=== PATIENT | male | born 1990 | race Caucasian/White ===

== ENCOUNTER → 2018-01-20 | Outpatient (CLI) | payer BC | LOC: LABPAT 08:44 | PROVIDERS: ATTEND Surgery | DX: Z01.818 Encounter for other preprocedural examination (principal) | CPT/HCPCS: 93005 ==

== ENCOUNTER 2018-01-21 06:49 | Day surgery (SDC) | payer BC ==
[2018-01-18 15:59] VITALS: BMI 40.3
[~2018-01-21 06:49] MED LIST: DEXAMETHASONE SOD PHOSPHATE 10 MG/ML 1 ML VIAL IV ONE; HEPARIN SODIUM,PORCINE 5,000 UNIT/ML 1 ML VIAL SQ ONE; HYDROmorphone 0.5 MG/0.5 ML SYRINGE IVP PRN; LACTATED RINGERS 1,000 ML IV SCH; MIDAZOLAM 2 MG/2 ML VIAL IV PRN; ONDANSETRON 4 MG/2 ML VIAL IVP ONE; SCOPOLAMINE 1.5MG/72HR PATCH TRANSDERM ONE; metroNIDAZOLE-NS PMX 500 MG in SALINE 1 100ML.BAG IVPB ONE
[2018-01-21] MEDS ORDERED: LIDOCAINE 1% 20 ML VIAL (10MG/ML) FOR IV START INTRADERMA ONE (07:12)
[2018-01-21] MEDS ORDERED: MIDAZOLAM 2 MG/2 ML VIAL ONE (08:12)
[2018-01-21] MEDS ORDERED: PROPOFOL 10 MG/ML 20 ML VIAL IV ONE (08:12)
[2018-01-21] MEDS ORDERED: LIDOCAINE 1% INJ 10MG/ML (20 ML MDV) ONE (08:12)
[2018-01-21] MEDS ORDERED: fentaNYL (PF) 50 MCG/ML 2 ML AMP ONE (08:12)
[2018-01-21] MEDS ORDERED: SUCCINYLCHOLINE CHLORIDE VIAL 200 MG/10 ML VIAL IV ONE (08:12)
--- NOTE | 2018-01-21 08:12 | P.GSHP ---
History of Present Illness H&P Date: 01/21/18 Chief Complaint: Neck lipoma, pilonidal cyst The 27-year-old male referred from Dr. Abad Barrios. Patient presents today for excision of pilonidal cyst and excision of posterior neck lipoma. Past Medical History Past Medical History: Hypertension History of Any Multi-Drug Resistant Organisms: None Reported Past Surgical History: Tonsillectomy Additional Past Surgical History / Comment(s): josh removed from neck, sinus surgery Past Anesthesia/Blood Transfusion Reactions: No Reported Reaction Smoking Status: Never smoker - Past Family History Mother Family Medical History: No Reported History Medications and Allergies Home Medications Medication Instructions Recorded Confirmed Type No Known Home Medications 01/21/16 01/18/18 History Allergies Allergy/AdvReac Type Severity Reaction Status Date / Time Milk Containing Products Allergy Unknown Verified 01/18/18 15:52 [Dairy] wheat Allergy Unknown Verified 01/18/18 15:52 Surgical - Exam Vital Signs Temp Pulse Resp BP Pulse Ox 98.0 F 94 16 135/78 99 01/21/18 07:03 01/21/18 07:03 01/21/18 07:03 01/21/18 07:03 01/21/18 07:03 - General well developed, no distress - Eyes PERRL - ENT normal pinna - Neck I centimeters posterior neck lipoma no masses - Respiratory normal expansion - Cardiovascular Rhythm: regular - Abdomen Abdomen: soft, non tender - Integumentary Pilonidal cyst Assessment and Plan Assessment: Posterior neck lipoma, pilonidal cyst. We'll perform excision.
[2018-01-21] MEDS ORDERED: BUPIVACAIN-EPI 0.25%-1:200,000 30 ML VIAL SQ ONE (08:44)
[2018-01-21 09:26] VITALS: TEMP 97.3
[2018-01-21 09:54] VITALS: RESP 16
[2018-01-21] MEDS ORDERED: HYDROcodone/APAP 7.5-325MG 1 EACH TAB PO ONE (10:27)
[2018-01-21 10:29] VITALS: BP 121/81; PULSE 98
--- NOTE | 2018-01-21 12:26 | P.OP ---
Date of Procedure: 01/21/18 Preoperative Diagnosis: Posterior neck lipoma Pilonidal cyst Postoperative Diagnosis: Posterior neck sebaceous cyst Pilonidal cyst Procedure(s) Performed: Excision of posterior neck sebaceous cyst Excision of pilonidal cyst Anesthesia: ERIC Surgeon: Florencio Stoddard Estimated Blood Loss (ml): 5 Pathology: other (Pilonidal cyst, sebaceous cyst) Condition: stable Disposition: PACU Description of Procedure: The patient's placed on the operating table in the supine position. He received general anesthesia. He was then placed the prone position. His neck and gluteal area were prepped and draped usual sterile fashion. Patient had a 5 cm mass in the posterior midline neck. The skin was incised and using blunt and sharp dissection mass was excised. The mass was a sebaceous cyst. The Bovie hemostasis. Skin was closed interrupted 3-0 Monocryl suture. Dermabond was applied. Next the pilonidal cyst was excised. Using a 15 blade elliptical skin incision was made around the cyst and then using electrocautery the subcutaneous fat were divided. And then the pilonidal cyst excised. The wound was packed with wet-to-dry Kerlix. Patient top she will was sent to recovery in stable condition.
== END 2018-01-21 11:19 | disposition home or self-care (01) ==
LOC: OR 06:49
PROVIDERS: ATTEND Surgery
DX: L05.91 Pilonidal cyst without abscess (principal); L72.0 Epidermal cyst; I10 Essential (primary) hypertension; G47.33 Obstructive sleep apnea (adult) (pediatric); E66.9 Obesity, unspecified; Z91.011 Allergy to milk products; Z91.018 Allergy to other foods; Z68.41 Body mass index [BMI] 40.0-44.9, adult
CPT/HCPCS: 88304; 11426; 11771; J2250; J0330; J1644; J1100; J0690; J2405; J2001; J3010; J2704

== ENCOUNTER → 2018-03-08 | Outpatient (CLI) | payer BC ==
--- NOTE | 2018-03-08 11:18 | P.SLEEP ---
History of Present Illness H&P Date: 03/08/18 Chief Complaint: Hypersomnia and loud snoring A pleasant 28-year-old male patient is accompanied today by his due to concerns of obstructive sleep apnea. The patient has been a loud snorer and is responding for many years. In addition, the has noted that the patient will stop breathing on multiple occasions throughout the night. He would wake up choking and gasping for air. The patient will also wake up with a dry mouth. He goes to bed somewhere between 7:30 PM and 11 PM when he wakes of 5: 30 AM in the morning. He carries the same schedule on weekends. He averages around 7-10 hours of sleep. He is very much somnolent and sleepy in his upper scores at 15. His weight has been fluctuating. His current weight is at 288 pounds. The patient has some difficulties in attention, memory and concentration. No sleep paralysis. No hallucinations. No cataplexy. He has a positive family history of obstructive sleep apnea. No motor vehicle accident because of healing drowsy or sleepy. The patient recently had a pilonidal cyst resection and postop the patient was having prolonged apneas and this further raise concern of an underlying sleep breathing disorder. Review of Systems Constitutional: Reports daytime sleepiness, Reports fatigue, Reports weight gain Eyes: denies as per HPI, denies blurred vision, denies bulging eye, denies decreased vision, denies diplopia, denies discharge, denies dry eye, denies irritation, denies itching, denies pain, denies photophobia, denies loss of peripheral vision, denies loss of vision, denies tunnel vision/blind spots Ears: deny: decreased hearing, ear discharge, earache, tinnitus Ears, nose, mouth and throat: Reports as per HPI, Denies headache, Denies sore throat Cardiovascular: Reports as per HPI Respiratory: Reports as per HPI Gastrointestinal: Reports as per HPI Genitourinary: Reports as per HPI Musculoskeletal: Reports as per HPI Musculoskeletal: absent: ankle pain, ankle stiffness, ankle swelling, as per HPI , elbow pain, elbow stiffness, elbow swelling, foot pain, foot stiffness, foot swelling, hand pain, hand stiffness, hand swelling, hip pain, hip stiffness, hip swelling, knee pain, knee stiffness, knee swelling, shoulder pain, shoulder stiffness, shoulder swelling, wrist pain, wrist stiffness, wrist swelling Integumentary: Reports as per HPI Neurological: Reports as per HPI Psychiatric: Reports sleep disturbances Endocrine: Reports as per HPI Hematologic/Lymphatic: Reports as per HPI Allergic/Immunologic: Reports as per HPI Past Medical History Past Medical History: Hypertension Additional Past Medical History / Comment(s): Obesity currently on Adipex History of Any Multi-Drug Resistant Organisms: None Reported Past Surgical History: Tonsillectomy Additional Past Surgical History / Comment(s): josh removed from neck, sinus surgery , pilonidal cyst Past Anesthesia/Blood Transfusion Reactions: No Reported Reaction Smoking Status: Never smoker - Past Family History Mother Family Medical History: No Reported History Medications and Allergies Home Medications Medication Instructions Recorded Confirmed Type Docusate [Colace] 100 mg PO BID #20 capsule 01/21/18 Rx HYDROcodone/APAP 7.5-325MG [[place] 1 tab PO Q4H PRN 3 Days #18 tab 01/21/18 Rx 7.5-325] Allergies Allergy/AdvReac Type Severity Reaction Status Date / Time Milk Containing Products Allergy Unknown Verified 01/18/18 15:52 [Dairy] wheat Allergy Unknown Verified 01/18/18 15:52 Physical Exam Vitals: BP is 130/85, pulse is 96, respirations 16, temperature 98.1, weight is 288, height is 510, upper scores at 15, BMI is 40.7, and excise is 19 inches, pulse ox is 95% on room air Gen. appearance obese, comfortable likely distress Head exam was generally normal. There was no scleral icterus or corneal arcus. Mucous membranes were moist. Neck was supple and without jugular venous distension, thyromegaly, or carotid bruits. Carotids were easily palpable bilaterally. There was no adenopathy. Mallampati class IV with significant crowding of the posterior oropharynx Lungs were clear to auscultation and percussion, and with normal diaphragmatic excursion. No wheezes or rales were noted. Cardiac exam revealed the PMI to be normally situated and sized. The rhythm was regular and no extrasystoles were noted during several minutes of auscultation. The first and second heart sounds were normal and physiologic splitting of the second heart sound was noted. There were no murmurs, rubs, clicks, or gallops. Abdominal exam revealed normal bowel sounds. The abdomen was soft, non-tender, and without masses, organomegaly, or appreciable enlargement of the abdominal aorta. Examination of the extremities revealed easily palpable radial, femoral and pedal pulses. There was no cyanosis, clubbing or edema. Examination of the skin revealed no evidence of significant rashes, suspicious appearing nevi or other concerning lesions. Neurologically awake and alert Assessment and Plan Assessment: 1 hypersomnia with history of snoring and witnessed apneas. The patient carries a very high suspicion for obstructive sleep apnea. His current upper scores a 15 2 obesity with a BMI of 40.7, currently on adequate Plan This patient has a high risk for obstructive sleep apnea. The patient will undergo a polysomnogram and we will to proceed with treatment accordingly. My suspicion for ROZ's high. The patient was advised to lose weight and optimizing sleep hygiene measures. We'll continue to follow make further recommendations based on the results of the sleep study. Sleep Note - Sleep Data Previous Sleep Study: No - Sleep Note Sleep Note: Temperature: 97 Pulse Rate: 96 Respiratory Rate:16 Blood Pressure:130/85 SpO2: 95 Height: 5'10 Weight: 288 BMI: 40.7 Neck Circumference: 19
== END | disposition home or self-care (01) ==
LOC: SLEEP 10:25
PROVIDERS: ATTEND Internal Medicine Critical Care Medicine
DX: G47.10 Hypersomnia, unspecified (principal); R06.81 Apnea, not elsewhere classified; E66.9 Obesity, unspecified; Z68.41 Body mass index [BMI] 40.0-44.9, adult; Z82.0 Family history of epilepsy and other diseases of the nervous system; Z79.899 Other long term (current) drug therapy
CPT/HCPCS: 99211

== ENCOUNTER → 2018-06-28 | Outpatient (CLI) | payer BC ==
--- NOTE | 2018-06-28 15:33 | SFUN ---
SLEEP CENTER FOLLOW UP NOTE This patient is 29, coming in for a compliancy check regarding his obstructive sleep apnea. He has severe ROZ, AHI of 73. He was given a APAP, minimum of 5, maximum of 15. He is using also an AirFit F20 full-face mask, medium size. On today's evaluation, the patient has been utilizing his CPAP more than 70% of the time and his CPAP use for more than 4 hours is at 33%, essentially 12/14. His average CPAP use is around 4 hours per night and the patient's average CPAP pressure is around 12.1 cm of water while using the APAP mode. His leak is around 19 L/minute and his AHI is down to 1 while on treatment. In general, he is feeling better. He is less sleepy, snoring is completely subsided, [place] score is down to 3. He is now falling asleep during day-to-day activities. His weight is down by around 11 pound since his last evaluation. REVIEW OF SYSTEMS: A 14-point review of system was done. Positive findings are mentioned in history of present illness. He is losing weight. No major hypersomnia or sleepiness during the day. PHYSICAL EXAM: BP is 164/84, pulse 106, respirations 16, temperature is 98.1, [place] score is 3, saturation 94% on room air. Weight is 277. GENERAL APPEARANCE: Calm, comfortable. HEAD: Atraumatic, normocephalic. NECK: Supple. No goiter or neck masses. Mallampati class 4. LUNGS: Diminished, otherwise clear. HEART: Sounds are regular rate and rhythm. Normal S1, S2. No S3. No murmurs. ABDOMEN: Soft, nontender. No organomegaly. EXTREMITIES: No edema. No cyanosis or clubbing. NEUROLOGIC: Alert and oriented x3. No focal neurological deficits. PSYCHIATRIC: Negative for anxiety or depression. IMPRESSION: 1. Severe obstructive sleep apnea, apnea-hypopnea index of 73, currently on APAP. 2. Hypersomnia, improved, [place] score is down to 3. 3. Severe nocturnal oxygen desaturation improved with CPAP therapy. 4. Obesity with interval weight loss. Current body weight is down to 277. 5. Hypertension. PLAN: 1. Encourage further weight loss. 2. Increase the CPAP use for more than 4 hours per night. 3. Offer this patient Dream Wear full-face mask, small size. 4. Implement good sleep hygiene measures. The patient is benefitting from the treatment. Would like to extend his sleep hours, if possible. Will see him back in a year's time in followup, earlier if needed. MMODL / IJN: [id number] /
== END ==
LOC: SLEEP 13:43
PROVIDERS: ATTEND Internal Medicine Critical Care Medicine
DX: G47.33 Obstructive sleep apnea (adult) (pediatric) (principal); E66.9 Obesity, unspecified; I10 Essential (primary) hypertension; Z99.89 Dependence on other enabling machines and devices

== ENCOUNTER 2019-01-31 16:06 | Emergency (ER) | payer BC ==
[2019-01-31] MEDS ORDERED: KETOROLAC 30 MG/ML 1 ML VIAL IVP STA (16:38)
[2019-01-31] MEDS ORDERED: SODIUM CHLORIDE 0.9% 1,000 ML IV STA (16:38)
[2019-01-31] MEDS ORDERED: PANTOPRAZOLE 40 MG/10 ML VIAL IVP STA (16:38)
[2019-01-31] MEDS ORDERED: METOCLOPRAMIDE 5 MG/ML 2 ML VIAL IVP STA (16:38)
--- NOTE | 2019-01-31 16:41 | ED ---
General Adult HPI - General Chief complaint: Abdominal Pain Stated complaint: Abdominal pain Time Seen by Provider: 01/31/19 16:27 Source: patient, RN notes reviewed Mode of arrival: ambulatory Limitations: no limitations - History of Present Illness Initial comments: patient is a pleasant 28-year-old male presenting to the emergency Department with complaints of abdominal discomfort. Onset of symptoms was for 5 days ago after eating [place] food. Symptoms lasted a day or 2. Symptoms seemed better the last couple of days. Symptoms have worsened throughout the day. Discomfort is now more right upper abdomen. Patient has had some nausea and decreased appetite. No vomiting. No constipation or diarrhea. No fevers. Patient has been a little bit more sweaty than normal, especially with the discomfort. - Related Data Home Medications Medication Instructions Recorded Confirmed No Known Home Medications 01/31/19 01/31/19 Allergies Allergy/AdvReac Type Severity Reaction Status Date / Time Milk Containing Products Allergy Unknown Verified 01/31/19 19:16 [Dairy] wheat Allergy Unknown Verified 01/31/19 19:16 Review of Systems ROS Statement: Those systems with pertinent positive or pertinent negative responses have been documented in the HPI. ROS Other: All systems not noted in ROS Statement are negative. Constitutional: Denies: fever Eyes: Denies: eye pain ENT: Denies: ear pain Respiratory: Denies: cough, dyspnea Cardiovascular: Denies: chest pain Endocrine: Denies: fatigue Gastrointestinal: Reports: as per HPI, abdominal pain, nausea Genitourinary: Denies: dysuria Musculoskeletal: Denies: back pain Skin: Denies: rash Neurological: Denies: weakness Past Medical History Past Medical History: Hypertension Additional Past Medical History / Comment(s): Obesity currently on Adipex History of Any Multi-Drug Resistant Organisms: None Reported Past Surgical History: Tonsillectomy Additional Past Surgical History / Comment(s): josh removed from neck, sinus surgery , pilonidal cyst Past Anesthesia/Blood Transfusion Reactions: No Reported Reaction Past Psychological History: No Psychological Hx Reported Smoking Status: Never smoker Past Alcohol Use History: Occasional Past Drug Use History: None Reported - Past Family History Mother Family Medical History: No Reported History General Exam Limitations: no limitations General appearance: alert, in no apparent distress Head exam: Present: normocephalic Eye exam: Present: normal appearance, PERRL ENT exam: Present: normal oropharynx Neck exam: Present: normal inspection Respiratory exam: Present: normal lung sounds bilaterally Cardiovascular Exam: Present: regular rate, normal rhythm Expanded Peripheral pulses: 2+: Dorsalis Pedis (R), Dorsalis Pedis (L) GI/Abdominal exam: Present: soft, tenderness (moderate tenderness right upper quadrant), normal bowel sounds. Absent: distended, guarding, rebound, rigid, pulsatile mass Extremities exam: Present: normal inspection. Absent: pedal edema, calf tenderness Back exam: Absent: CVA tenderness (R) Neurological exam: Present: alert Psychiatric exam: Present: normal affect, normal mood Skin exam: Present: normal color Course Vital Signs 01/31/19 01/31/19 01/31/19 16:18 18:35 19:58 Temperature 97.5 F L 97.5 F L 98.2 F Pulse Rate 85 84 80 Respiratory 18 20 18 Rate Blood Pressure 156/96 135/70 128/76 O2 Sat by Pulse 97 98 96 Oximetry Medical Decision Making - Medical Decision Making patient reevaluated and again and resting comfortably in bed without complaints at this time. Patient and family updated on results and need for follow-up. Case was also discussed with Dr. Nieto. - Lab Data Result diagrams: 01/31/19 16:13 01/31/19 16:13 Lab Results 01/31/19 01/31/19 01/31/19 Range/Units 16:13 16:13 16:13 WBC 9.1 (3.8-10.6) k/uL RBC 5.34 (4.30-5.90) m/uL Hgb 14.8 (13.0-17.5) gm/dL Hct 45.3 (39.0-53.0) % MCV 84.9 (80.0-100.0) fL MCH 27.8 (25.0-35.0) pg MCHC 32.8 (31.0-37.0) g/dL RDW 12.4 (11.5-15.5) % Plt Count 316 (150-450) k/uL Neutrophils % 67 % Lymphocytes % 19 % Monocytes % 4 % Eosinophils % 5 % Basophils % 3 % Neutrophils # 6.1 (1.3-7.7) k/uL Lymphocytes # 1.7 (1.0-4.8) k/uL Monocytes # 0.4 (0-1.0) k/uL Eosinophils # 0.5 (0-0.7) k/uL Basophils # 0.2 (0-0.2) k/uL PT 10.2 (9.0-12.0) sec INR 0.9 (<1.2) APTT 23.4 (22.0-30.0) sec Sodium 141 (137-145) mmol/L Potassium 4.0 (3.5-5.1) mmol/L Chloride 105 (98-107) mmol/L Carbon Dioxide 25 (22-30) mmol/L Anion Gap 11 mmol/L BUN 12 (9-20) mg/dL Creatinine 0.70 (0.66-1.25) mg/dL Est GFR (CKD-EPI)AfAm >90 (>60 ml/min/1.73 sqM) Est GFR (CKD-EPI)NonAf >90 (>60 ml/min/1.73 sqM) Glucose 108 H (74-99) mg/dL Calcium 9.6 (8.4-10.2) mg/dL Total Bilirubin 0.6 (0.2-1.3) mg/dL AST 63 H (17-59) U/L ALT 119 H (4-49) U/L Alkaline Phosphatase 84 (38-126) U/L Total Protein 7.4 (6.3-8.2) g/dL Albumin 4.2 (3.5-5.0) g/dL Amylase 44 (30-110) U/L Lipase 59 (23-300) U/L Urine Color Urine Appearance (Clear) Urine pH (5.0-8.0) Ur Specific [place] (1.001-1.035) Urine Protein (Negative) Urine Glucose (UA) (Negative) Urine Ketones (Negative) Urine Blood (Negative) Urine Nitrite (Negative) Urine Bilirubin (Negative) Urine Urobilinogen (<2.0) mg/dL Ur Leukocyte Esterase (Negative) 01/31/19 Range/Units Unknown WBC (3.8-10.6) k/uL RBC (4.30-5.90) m/uL Hgb (13.0-17.5) gm/dL Hct (39.0-53.0) % MCV (80.0-100.0) fL MCH (25.0-35.0) pg MCHC (31.0-37.0) g/dL RDW (11.5-15.5) % Plt Count (150-450) k/uL Neutrophils % % Lymphocytes % % Monocytes % % Eosinophils % % Basophils % % Neutrophils # (1.3-7.7) k/uL Lymphocytes # (1.0-4.8) k/uL Monocytes # (0-1.0) k/uL Eosinophils # (0-0.7) k/uL Basophils # (0-0.2) k/uL PT (9.0-12.0) sec INR (<1.2) APTT (22.0-30.0) sec Sodium (137-145) mmol/L Potassium (3.5-5.1) mmol/L Chloride (98-107) mmol/L Carbon Dioxide (22-30) mmol/L Anion Gap mmol/L BUN (9-20) mg/dL Creatinine (0.66-1.25) mg/dL Est GFR (CKD-EPI)AfAm (>60 ml/min/1.73 sqM) Est GFR (CKD-EPI)NonAf (>60 ml/min/1.73 sqM) Glucose (74-99) mg/dL Calcium (8.4-10.2) mg/dL Total Bilirubin (0.2-1.3) mg/dL AST (17-59) U/L ALT (4-49) U/L Alkaline Phosphatase (38-126) U/L Total Protein (6.3-8.2) g/dL Albumin (3.5-5.0) g/dL Amylase (30-110) U/L Lipase (23-300) U/L Urine Color Yellow Urine Appearance Clear (Clear) Urine pH 5.5 (5.0-8.0) Ur Specific [place] 1.024 (1.001-1.035) Urine Protein Negative (Negative) Urine Glucose (UA) Negative (Negative) Urine Ketones Negative (Negative) Urine Blood Negative (Negative) Urine Nitrite Negative (Negative) Urine Bilirubin Negative (Negative) Urine Urobilinogen 6.0 (<2.0) mg/dL Ur Leukocyte Esterase Negative (Negative) - Radiology Data Radiology results: report reviewed (: Her ultrasound shows no acute process. Fatty enlarged liver with likely hemangioma, computed tomography scan of the abdomen pelvis shows mild hepatomegaly. No other findings.), image reviewed (KUB shows no acute process) Disposition Clinical Impression: Abdominal pain Disposition: HOME SELF-CARE Condition: Stable Instructions (If sedation given, give patient instructions): Abdominal Pain (ED) Additional Instructions: please follow-up with primary care physician in the next couple days for recheck. Return for increased pain, fever, vomiting, worsening symptoms or othe r concerns. Have primary care's physician consider HIDA scan or EGD. Is patient prescribed a controlled substance at d/c from ED?: No Referrals: Abad Nieto DO [Primary Care Provider] - 1-2 days Gavin Manzano MD [Medical Doctor] - 1-2 days Time of Disposition: 21:03
[2019-01-31 16:54] LABS: Basophils # (A) 0.2 k/uL (0-0.2); Basophils % (A) 3 %; Eosinophils # (A) 0.5 k/uL (0-0.7); Eosinophils % (A) 5 %; HCT 45.3 % (39.0-53.0); HGB 14.8 gm/dL (13.0-17.5); Lymphocytes # (A) 1.7 k/uL (1.0-4.8); Lymphocytes % (A) 19 %; MCH 27.8 pg (25.0-35.0); MCHC 32.8 g/dL (31.0-37.0); MCV 84.9 fL (80.0-100.0); Mean Platelet Volume 7.3; Monocytes # (A) 0.4 k/uL (0-1.0); Monocytes % (A) 4 %; Neutrophils # (A) 6.1 k/uL (1.3-7.7); Neutrophils % (A) 67 %; Platelet Count 316 k/uL (150-450); RBC 5.34 m/uL (4.30-5.90); RDW 12.4 % (11.5-15.5); WBC 9.1 k/uL (3.8-10.6)
[2019-01-31 17:01] LABS: ALT 119 U/L (4-49); AST 63 U/L (17-59); African American GFR (CKD) >90 (>60 ml/min/1.73 sqM); Albumin 4.2 g/dL (3.5-5.0); Alkaline Phosphatase 84 U/L (38-126); Amylase 44 U/L (30-110); Anion Gap 11 mmol/L; Blood Urea Nitrogen 12 mg/dL (9-20); Calcium 9.6 mg/dL (8.4-10.2); Carbon Dioxide 25 mmol/L (22-30); Chloride 105 mmol/L (98-107); Glucose 108 mg/dL (74-99); Non-African American GFR(CKD) >90 (>60 ml/min/1.73 sqM); Sodium 141 mmol/L (137-145); Total Bilirubin 0.6 mg/dL (0.2-1.3); Total Protein 7.4 g/dL (6.3-8.2)
[2019-01-31 17:10] LABS: Appearance,Urine Clear (Clear); Bilirubin,Urine Negative (Negative); Blood,Urine Negative (Negative); Color,Urine Yellow; Glucose,Urine (UA) Negative (Negative); Ketones,Urine Negative (Negative); Leukocyte Esterase,Urine Negative (Negative); Nitrite,Urine Negative (Negative); PH, Urine 5.5 (5.0-8.0); Protein,Urine Negative (Negative); Specific Gravity,Urine 1.024 (1.001-1.035)
[2019-01-31 17:13] LABS: INR 0.9 (<1.2); Partial Thromboplastin Time 23.4 sec (22.0-30.0); Prothrombin Time 10.2 sec (9.0-12.0)
--- NOTE | 2019-01-31 17:18 | XR ---
EXAMINATION TYPE: XR KUB 2 views DATE OF EXAM: 01/31/2019 5:06 PM CLINICAL HISTORY: Right-sided abdominal pain TECHNIQUE: 2 upright views COMPARISON: 01/21/2016 FINDINGS: Scattered gas is seen in non-distended small bowel loops. Gas and fecal material is seen in non-distended colon. There is evidence of mild hepatomegaly, with the liver measuring 24 cm craniocaudal in the midclavicu lar line. No other evidence of visceromegaly. There is no pneumoperitoneum, or abnormal calcification appreciated. The lung bases are clear and the osseous structures are intact. IMPRESSION: 1. No acute radiographic process. 2. Evidence of mild hepatomegaly noted.
--- NOTE | 2019-01-31 18:55 | US ---
EXAMINATION TYPE: US gallbladder DATE OF EXAM: 01/31/2019 COMPARISON: NONE CLINICAL HISTORY: ruq pain. Fever, nausea and vomiting; ate couple pieces of pizza at noon today. EXAM MEASUREMENTS: Liver Length: 24.6 cm Gallbladder Wall: 0.3 cm CBD: 0.5 cm Right Kidney: 12.5 x 6.8 x 4.6 cm Pancreas: hyperechoic Liver: Enlarged; left lobe complex hypoechoic area with acoustic shadowing = 0.7 x 0.9 x 0.6cm, like ly hemangioma which can be proven with MRI; fatty liver appears hyperechoic to right renal cortex an d liver is attenuated posteriorly, suggesting steatosis which can be proven with MRI. Gallbladder: contracted gallbladder, although patient has been NPO x 5.5 hours Evidence for sonographic Celaya's sign: patient did not verbalize pain here CBD: wnl Right Kidney: No hydronephrosis or masses seen IMPRESSION: 1. NO ACUTE PROCESS. 2. Incidental nonspecific liver findings as above.
[2019-01-31] MEDS ORDERED: HYDROmorphone 1 MG/ML 1 ML SYRINGE IVP STA (19:38)
[2019-01-31 19:59] VITALS: RESP 18; TEMP 98.2
--- NOTE | 2019-01-31 20:50 | CT ---
EXAMINATION TYPE: CT abdomen pelvis w con DATE OF EXAM: 01/31/2019 COMPARISON: None HISTORY: Right upper abdominal pain x [address] DLP: 2247.6 mGycm Automated exposure control for dose reduction was used. TECHNIQUE: Helical acquisition of images was performed from the lung bases through the pelvis. CONTRAST: Performed without Oral Contrast and with IV Contrast, patient injected with 100 mL of Isovu e 300. FINDINGS: LUNG BASES: No significant abnormality is appreciated. LIVER/GB: Mild hepatomegaly noted. No focal findings. PANCREAS: No significant abnormality is seen. SPLEEN: No significant abnormality is seen. ADRENALS: No significant abnormality is seen. KIDNEYS: No significant abnormality is seen. FREE AIR: No free air is visualized. RETROPERITONEAL ADENOPATHY: None visualized REPRODUCTIVE ORGANS: No significant abnormality is seen URINARY BLADDER: No significant abnormality is seen. PELVIC ADENOPATHY: None visualized. OSSEOUS STRUCTURES: No significant abnormality is seen. BOWEL: No significant abnormality is seen. The appendix is retrocecal and courses anterior to the ri ght psoas muscle. It has normal appearance. OTHER: No acute vascular findings. IMPRESSION: MILD HEPATOMEGALY; NO OTHER FINDINGS.
[2019-01-31 21:10] VITALS: BP 123/79; PULSE 73
== END 2019-01-31 21:11 | disposition home or self-care (01) ==
LOC: EC 16:06
DX: R10.11 Right upper quadrant pain (principal); R11.0 Nausea; R63.8 Other symptoms and signs concerning food and fluid intake; E66.9 Obesity, unspecified; Z91.011 Allergy to milk products; Z91.018 Allergy to other foods; Z79.899 Other long term (current) drug therapy; Z68.39 Body mass index [BMI] 39.0-39.9, adult
CPT/HCPCS: 36415; 80053; 82150; 83690; 85025; 85610; 85730; 81003; 74018; 76705; 74177; 99284; 96374; 96375 ×3; 96361; J2765; J1885; J1170; C9113; Q9967

== ENCOUNTER → 2019-02-11 | Outpatient (CLI) | payer BC ==
--- NOTE | 2019-02-11 11:10 | NM ---
EXAMINATION TYPE: NM hepatobiliary w EF DATE OF EXAM: 02/11/2019 COMPARISON: CT 11 days ago. HISTORY: Acute cholecystitis per order. Right-sided pain. TECHNIQUE: After the intravenous administration of 5.2 mCi Tc 99m Mebrofenin hepatobiliary scintigrap hy is performed. Immediate images post injection. FINDINGS: There is satisfactory initial accumulation of tracer by the liver. The gallbladder is visualized wit hin 30 minutes. The small bowel activity is noted within 55 minutes. At one hour 8 ounces of oral e nsure plus is given to mimic CCK and gallbladder ejection fraction is calculated at 76 %, in the norm al range. Therefore there is no scintigraphic evidence of cystic or common bile duct obstruction to suggest acute cholecystitis or gallbladder dyskinesia. IMPRESSION: Exam is within normal limits.
== END | disposition home or self-care (01) ==
LOC: RADNMMAIN 08:49
PROVIDERS: ATTEND Family Medicine
DX: K81.0 Acute cholecystitis (principal)
CPT/HCPCS: 78226; A9537

== ENCOUNTER 2020-05-21 17:15 | Emergency (ER) | payer BC ==
--- NOTE | 2020-05-21 19:32 | ED ---
General Adult HPI <Travis Gill - Last Filed: 05/21/20 19:31> - History of Present Illness -: days(s) Location: head, chest, back, abdomen Radiation: non-radiation Severity scale (1-10): 4 Quality: aching Consistency: constant Improves with: none Worsens with: none Associated Symptoms: shortness of breath, weakness Treatments Prior to Arrival: none <Tomasz Velarde - Last Filed: 05/22/20 04:21> - General Stated complaint: covid+/increased SOB - History of Present Illness Initial comments: 30-year-old male presents emergency department with a chief complaint of cough, congestion, fatigue and myalgias. States she has been symptoms at it for about one week and tested positive on 05/17/20. Reports increase in his symptoms. Reports chills and fevers at home and has been taking Tylenol and Motrin. States he felt pretty good today but since the afternoon his symptoms increase. He reports exertional dyspnea but no significant chest pain. (Travis Gill) 30 male to ER, positive for coronavirus. Patient states symptoms are worsening shortness of breath is worsening he is feeling worse and worse. Immunizations up-to-date no recent travel history no coronavirus vaccination (Tomasz Velarde) - Related Data Home Medications Medication Instructions Recorded Confirmed No Known Home Medications 01/31/19 01/31/19 Allergies Allergy/AdvReac Type Severity Reaction Status Date / Time Milk Containing Products Allergy Unknown Verified 05/21/20 19:34 [Dairy] wheat Allergy Unknown Verified 05/21/20 19:34 Review of Systems ROS Other: All systems not noted in ROS Statement are negative. <Travis Gill - Last Filed: 05/21/20 19:31> ROS Other: All systems not noted in ROS Statement are negative. <Tomasz Velarde - Last Filed: 05/22/20 04:21> ROS Statement: Those systems with pertinent positive or pertinent negative responses have been documented in the HPI. Past Medical History Past Medical History: Hypertension Additional Past Medical History / Comment(s): Obesity currently on Adipex History of Any Multi-Drug Resistant Organisms: None Reported Past Surgical History: Tonsillectomy Additional Past Surgical History / Comment(s): josh removed from neck, sinus surgery , pilonidal cyst Past Anesthesia/Blood Transfusion Reactions: No Reported Reaction Past Psychological History: No Psychological Hx Reported Past Alcohol Use History: Occasional Past Drug Use History: None Reported - Past Family History Mother Family Medical History: No Reported History <Travis Gill - Last Filed: 05/21/20 19:31> General Exam General appearance: alert, in no apparent distress, anxious Head exam: Present: atraumatic, normocephalic, normal inspection Eye exam: Present: normal appearance, PERRL, EOMI. Absent: scleral icterus, conjunctival injection, periorbital swelling ENT exam: Present: normal exam, mucous membranes moist Neck exam: Present: normal inspection. Absent: tenderness, meningismus, lymphadenopathy Respiratory exam: Present: normal lung sounds bilaterally. Absent: respiratory distress, wheezes, rales, rhonchi, stridor Cardiovascular Exam: Present: normal rhythm, tachycardia, normal heart sounds. Absent: systolic murmur, diastolic murmur, rubs, gallop, clicks GI/Abdominal exam: Present: soft, normal bowel sounds. Absent: distended, tenderness, guarding, rebound, rigid Extremities exam: Present: normal inspection, full ROM, normal capillary refill. Absent: tenderness, pedal edema, joint swelling, calf tenderness Back exam: Present: normal inspection Neurological exam: Present: alert, oriented X3, CN II-XII intact Psychiatric exam: Present: normal affect, normal mood Skin exam: Present: warm, dry, intact, normal color. Absent: rash <Tomasz Vealrde - Last Filed: 05/22/20 04:21> Course <Tomasz Velarde - Last Filed: 05/22/20 04:21> Vital Signs 05/21/20 05/21/20 05/21/20 19:32 21:00 22:23 Temperature 101.5 F H 100.7 F H Pulse Rate 115 H 100 Respiratory 20 18 18 Rate Blood Pressure 144/96 140/94 O2 Sat by Pulse 95 94 L Oximetry 05/21/20 05/22/20 23:19 01:04 Temperature Pulse Rate 96 88 Respiratory 18 16 Rate Blood Pressure 126/79 116/72 O2 Sat by Pulse 92 L 93 L Oximetry - Reevaluation(s) Reevaluation #1: Medical record is reviewed Patient symptoms are significantly improved Patient informed results and questions have been answered (Tomasz Velarde) Medical Decision Making - Radiology Data Radiology results: report reviewed (Chest x-ray does show mild coronavirus pneumonia), image reviewed <Tomasz Velarde - Last Filed: 05/22/20 04:21> - Medical Decision Making 30 male who has known coronavirus, patient given BAM here in the ER. Patient feels well and can be discharged home (Tomasz Velarde) Disposition <Travis Gill - Last Filed: 05/21/20 19:31> Is patient prescribed a controlled substance at d/c from ED?: No <Tomasz Velarde - Last Filed: 05/22/20 04:21> Clinical Impression: Coronavirus infection, Pneumonia due to COVID-19 virus Disposition: HOME SELF-CARE Condition: Good Instructions (If sedation given, give patient instructions): Coronavirus Disease 2019 (COVID-19) Referrals: Abad Nieto DO [Primary Care Provider] - 1-2 days
[2020-05-21] MEDS ORDERED: ACETAMINOPHEN TAB 325 MG TAB PO STA (19:35)
[2020-05-21] MEDS ORDERED: IBUPROFEN 400 MG TAB PO STA (19:35)
--- NOTE | 2020-05-21 19:52 | XR ---
EXAMINATION TYPE: XR chest 2V DATE OF EXAM: 05/21/2020 COMPARISON: 01/21/2016 TECHNIQUE: PA and lateral views submitted. HISTORY: Shortness of breath FINDINGS: Patchy bilateral infiltrates. Heart size normal. No pleural effusion. No pneumothorax. Subsegmental c hanges at both lung bases. IMPRESSION: 1. Patchy bilateral infiltrate correlate for pneumonia.
[2020-05-21] MEDS ORDERED: BAMLANIVIMAB (EUA) 700 MG, ETESEVIMAB (EUA) 1,400 MG in SODIUM CHLORIDE 0.9% 50 ML IVPB ONE (22:00)
[2020-05-21] MEDS ORDERED: DEXAMETHASONE SOD PHOSPHATE 10 MG/ML 1 ML VIAL IV STA (22:00)
[2020-05-21] MEDS ORDERED: SODIUM CHLORIDE 0.9% 1,000 ML IV STA (22:00)
[2020-05-21] MEDS ORDERED: KETOROLAC 15 MG/ML 1 ML VIAL IVP STA (22:00)
[2020-05-21 22:24] VITALS: TEMP 100.7
[2020-05-21] MEDS ORDERED: SODIUM CHLORIDE 0.9% 50 ML IVPB ONE (23:00)
[2020-05-22 01:05] VITALS: BP 116/72; PULSE 88; RESP 16
== END 2020-05-22 00:55 | disposition home or self-care (01) ==
LOC: EC 17:15
DX: U07.1 COVID-19 (principal); J12.82 Pneumonia due to coronavirus disease 2019; R00.0 Tachycardia, unspecified; Z90.89 Acquired absence of other organs; Z91.011 Allergy to milk products; Z91.018 Allergy to other foods
CPT/HCPCS: 71046; 99284; 96365; 96375 ×2; 96361; J1100; J1885; Q0245